=== PATIENT | female | born 1955 | race Caucasian/White ===

== ENCOUNTER 2022-11-01 07:42 | Outpatient (CLI) | payer MEDICARE, SELFPAY ==
--- NOTE | 2022-11-01 08:15 | MR_ITS ---
[address] [address] Phone:?[phone] Fax:?[phone] Referring Physician Information: Stephon Snell M.D. [address] [facility] [address] Phone:?[phone] Fax:?[phone] Patient:Ever Martinez D.O.B:?1955 Sex:?Female Phone:?[phone] [facility] MRN:?[id number] Exam Date:?11/01/2022 ? EXAM: MRI of the RIGHT KNEE, without contrast CLINICAL: Right knee pain. Evaluate for medial meniscal tear. COMPARISONS: MRI 09/21/2016. TECHNICAL: MR sequences of the right knee: sagittals: PD, PDFS coronals: PD, T2FS axials: PD, PDFS SEDATION: None. CONTRAST: None. FINDINGS: Ligaments: ACL: Intact ACL anteromedial and posterolateral bundles, without sprain or tear. PCL: Intact PCL, without acute or chronic injury. MCL: Intact MCL superficial and deep layers, without injury. LCL: Intact LCL, without injury. Posterolateral corner: Popliteus, biceps femoris, iliotibial band, and the popliteofibular ligament appear intact. Posteromedial corner: Semimembranosus, pes anserine tendons and posterior oblique ligament appear intact. Extensor mechanism: Patellar tendon: Intact, without tendinopathy. Quadriceps tendon: Intact, without tendinopathy. Retinacula: Medial and lateral retinacula are intact. Fat pads: Unremarkable infrapatellar Hoffa's, quadriceps and prefemoral fat pads. 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 This is increased compared to prior exam. Trochlea: No significant chondromalacia. Medial compartment: Medial meniscus: No evidence of discrete meniscal tear or meniscal displacement. Medial cartilage: No significant chondromalacia. Lateral compartment: Lateral meniscus: No evidence of discrete meniscal tear or meniscal displacement. Lateral cartilage: No significant chondromalacia. Knee joint: Effusion: Physiologic right knee effusion. Intra-articular bodies:?No convincing bodies identified. Popliteal cyst: None. Bones: No suspicious bone marrow signal alteration or fracture line. Anterior knee subcutaneous soft tissue edema is nonspecific. IMPRESSION: 1. 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 2. No evidence of meniscal tear, ligamentous injury or fracture. No significant joint effusion. JCZ Electronically signed on 11/01/2022 11:31:00 AM by Nilesh Glez D.O.
== END 2022-11-01 07:43 | disposition home or self-care (01) ==
PROVIDERS: PCP Family Medicine; Visit Provider Orthopaedic Surgery
DX: M25.561 Pain in right knee (principal)
CPT/HCPCS: 73721

== ENCOUNTER 2025-09-30 12:11 | Emergency (ER) | payer MEDICARE, SELFPAY ==
[2025-09-30] VITALS (23 sets, daily range): BP systolic 109–161; BP diastolic 36–78; PULSE 71–88; RESP 12–20; TEMP 36.2–36.7; O2SAT 92–100; BMI 31.3
[2025-09-30 12:43] LABS: Appearance Urine Clear (Clear)
--- NOTE | 2025-09-30 12:49 | ED.GENADULT ---
HPI - General Adult General Date Seen: 09/30/25 Chief complaint: Nausea/Vomiting Stated complaint: Vomiting Time Seen by Provider: 09/30/25 12:11 History of Present Illness HPI narrative: 69 yo F with a history of hypertension, hypothyroidism, GERD, elevated BMI, high cholesterol, type 2 diabetes, diabetic neuropathy, migraines, kidney stones, chronic kidney disease (in [facility] records it looks like her chronic creatinine range about 1.5-1.6 but on September 27, 3 days ago had gone up to 2.38). All other labs from 09/27 include sodium 137, potassium 4 1, chloride 4, bicarb 20, calcium 10.0, glucose 138. Urinalysis on 09/27 showed 1+ leukocyte esterase and trace blood otherwise negative. History from the patient is that several months ago she was noted to have chronic kidney disease and was referred to a farm mortgage agent. It sounds like that her farm mortgage agent at some workup and then was suspicious that she might have a renal artery stenosis. She was apparently referred for an angiogram a month or 2 ago and that angiogram ultimately did not confirm stenosis. 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 Since then she has been working with her farm mortgage agent as well as a vascular doctor and they been trying to adjust her medications. Recently her vascular doctor had her stop atenolol and start a new blood pressure medication instead (chlorthalidone? ). Also her vascular doctor had her increase her dose of atorvastatin from 25 mg up to 50 mg. She says that ever since she increased the door statin she has been feeling rotten. For the past couple of weeks she has had mild nausea intermittently. No vomiting. Along with that mild sensation that she might be about to get a headache and some sinus congestion for couple of weeks. She just was not feeling well last week without any clear other symptoms. No fever. No abdominal pain. No chest pain. Cough. No palpitations. She had to go back to the [facility] clinic for labs- on Tuesday, 3 days ago- see above. She says her cholesterol had dropped really low. However I do not see a cholesterol in the computer. I do see that her creatinine had climbed Since last Tuesday she has been feeling worse with a more significant headache, right flank pain, increased nausea and dry heaves. She has been unable to eat and almost unable drinking water over the weekend. She had perhaps 40 oz of water on Tuesday and only 8 oz yesterday on Tuesday. Today her flank pain is better but she still really nauseous and dry heaving. She is not really making any urine today, perhaps known yesterday either. She does not have a cough. No chest pain. No palpitations. She has sinus congestion but not really a headache. Vision is normal. She feels weak. Her whole body just feels heavy, even her eyebrows. Urination is been decreased in volume but no hematuria, dysuria. Related Data Home Medications ?Medication ?Instructions ?Recorded ?Confirmed clobetasol 0.05 % scalp solution ml topical 10/20/22 11/03/22 ketoconazole 2 % topical cream g topical 10/20/22 11/03/22 levothyroxine 100 mcg tablet 100 mcg PO 10/20/22 11/03/22 metformin 1,000 mg tablet 1,000 mg PO 10/20/22 11/03/22 omeprazole 20 mg capsule,delayed 20 mg PO 10/20/22 11/03/22 release valacyclovir 500 mg tablet 500 mg PO PRN 10/20/22 11/03/22 amlodipine 10 mg tablet 10 mg PO 11/03/22 11/03/22 rosuvastatin 20 mg tablet 20 mg PO QPM 09/30/25 09/30/25 Allergies Allergy/AdvReac Type Severity Reaction Status Date / Time latex Allergy rash, Verified 11/03/22 10:24 flushed, red phenytoin (From Dilantin) Allergy Verified 11/03/22 10:24 shellfish derived Allergy Verified 11/03/22 10:24 [facility] Medical History Brain tumor Diabetes High cholesterol Hypertension Hypothyroid Kidney stones Surgical History H/O foot surgery (07/17/13) Family History Other Diabetes Social History Smoking Status: Former smoker How often do you have a drink containing alcohol: monthly or less AUDIT-C Alcohol total score: 1 Non-prescribed substance use: denies use Exam Narrative: Exam Narrative: Constitutional: Appears well-developed and well-nourished. Alert. Looks tired but is overall conversant.. Non toxic. HENT: Head: Atraumatic. Nose: Nose normal. No purulent rhinorrhea. Mouth/Throat: Oral mucosa is clear and moist. no trismus. Pharynx normal. Tonsils symmetric. No tonsillar enlargement, erythema, or exudate. Eyes: Conjunctivae normal. EOM normal. Pupils equal, round, and reactive to light. No scleral icterus. Neck: Normal range of motion. Neck supple. No tracheal deviation present. No JVD Cardiovascular: Normal rate, regular rhythm. No gallop. No friction rub. Soft systolic murmur heard. Symmetric radial artery pulses Pulmonary/Chest: Effort normal. No stridor. No respiratory distress. No wheezes. No rales. No rhonchi . No tenderness. Abdominal: Soft. Bowel sounds normal. No distension. No mass. Right flank and right mid and upper quadrant tenderness. No rebound. No guarding. Musculoskeletal: RUE: Normal range of motion. No tenderness. No deformity LUE: Normal range of motion. No tenderness. No deformity RLE: Normal range of motion. No edema. No tenderness. No deformity LLE: Normal range of motion. No edema. No tenderness. No deformity Neurological: Alert and oriented to person, place, and time. Normal strength. CN II-VII intact. No sensory deficit. GCS eye subscore is 4. GCS verbal subscore is 5. GCS motor subscore is 6. Normal coordination Skin: Skin is warm and dry. No rash noted. No pallor. Normal capillary refill. Psychiatric: Normal mood. Normal affect. Const: Vital Signs, click to edit/add: Vital Signs - 24 hr 09/30/25 12:25 09/30/25 14:11 09/30/25 14:32 Temperature 97.2 F L Pulse Rate 74 76 Pulse Rate [Pulse Oximeter] 82 Respiratory Rate 16 18 20 Blood Pressure 142/60 H 136/57 L Blood Pressure [Ri ght Upper Arm] 161/78 H Pulse Oximetry 99 99 100 Oxygen Delivery Me thod Room Air 09/30/25 15:01 09/30/25 15:01 09/30/25 15:32 Temperature Pulse Rate 77 77 84 Pulse Rate [Pulse Oximeter] Respiratory Rate 17 17 20 Blood Pressure 133/55 L 133/55 L 142/62 H Blood Pressure [Ri ght Upper Arm] Pulse Oximetry 99 99 97 Oxygen Delivery Me thod Course Vital Signs Vital signs: Initial Vital Signs Temperature 97.2 F L 09/30/25 12:25 Temperature Source Temporal Artery Scan 09/30/25 12:25 Pulse Rate 82 09/30/25 12:25 Respiratory Rate 16 09/30/25 12:25 Blood Pressure 161/78 H 09/30/25 12:25 Blood Pressure Mean 105 09/30/25 12:25 Blood Pressure Position Sitting 09/30/25 12:25 Pulse Oximetry 99 09/30/25 12:25 Oxygen Delivery Method Room Air 09/30/25 12:25 Vital Signs Temperature 97.2 F L 09/30/25 12:25 Pulse Rate 82 09/30/25 12:25 Respiratory Rate 16 09/30/25 12:25 Blood Pressure 161/78 H 09/30/25 12:25 Pulse Oximetry 99 09/30/25 12:25 Oxygen Delivery Method Room Air 09/30/25 12:25 Temperature 97.2 F L 09/30/25 12:25 Pulse Rate 84 09/30/25 15:32 Respiratory Rate 20 09/30/25 15:32 Blood Pressure 142/62 H 09/30/25 15:32 Pulse Oximetry 97 09/30/25 15:32 Oxygen Delivery Method Room Air 09/30/25 12:25 Medications Administered Medications: Generic Name Dose Route Start Last Admin Trade Name Freq PRN Reason Stop Dose Admin Sodium Chloride 1,000 mls @ 125 mls/hr 09/30/25 15:52 09/30/25 16:20 0.9 % Sodium Chloride 1000 Ml IV 125 mls/hr .Q8H BRANDI Administration Discontinued Medications Generic Name Dose Route Start Last Admin Trade Name Freq PRN Reason Stop Dose Admin Acetaminophen 1,000 mg 09/30/25 15:00 09/30/25 15:16 Acetaminophen 500 Mg Tablet PO 09/30/25 15:01 1,000 mg ONCE ONE Administration Fentanyl 50 mcg 09/30/25 15:51 09/30/25 16:06 Fentanyl 100 Mcg/2 Ml Inj IVP 09/30/25 15:52 50 mcg ONCE ONE Administration Sodium Chloride 1,000 mls @ 1,000 mls/hr 09/30/25 13:30 09/30/25 14:46 0.9 % Sodium Chloride 1000 Ml IV 09/30/25 14:29 Infused .Q1H BRANDI Infusion Ceftriaxone Sodium 1 gm/ 100 mls @ 200 mls/hr 09/30/25 13:24 09/30/25 14:46 Sodium Chloride IVPB 09/30/25 13:25 Infused ONCE ONE Infusion Ceftriaxone Sodium 1 gm/ 100 mls @ 200 mls/hr 09/30/25 15:00 09/30/25 15:53 Sodium Chloride IVPB 09/30/25 15:01 Infused ONCE ONE Infusion Sodium Chloride 1,000 mls @ 1,000 mls/hr 09/30/25 15:00 09/30/25 15:53 0.9 % Sodium Chloride 1000 Ml IV 09/30/25 15:59 Infused .Q1H BRANDI Infusion Ondansetron HCl 4 mg 09/30/25 13:20 09/30/25 13:34 Ondansetron 2 Mg/Ml Inj IVP 09/30/25 13:21 4 mg ONCE ONE Administration Medical Decision Making [facility] Narrative Medical decision making narrative: Pleasant 69-year-old female presenting to the ER today with nausea, dry heaves, decreased urine output. 1. Renal. She does have some chronic renal insufficiency and it sounds like her baseline creatinine is 01.5. Last Tuesday 3 days ago was up to 2.4. Today, her labs show marked worsening with a BUN of 63 and creatinine of 10.0. This suggests an acute renal failure. Urinalysis shows scant pyuria which could potentially indicate UTI. Will treat with a g of Rocephin. White count is 12.5 but no other evidence for sepsis at this point. She is hemodynamically stable. Stone protocol CT scan does not show any evidence for obstructing kidney stones or hydronephrosis or a post renal cause of renal failure. Suspect this is probably pre renal related to her nausea and dehydration. We administered 2 L of crystalloid and repeat BMP shows mild improvement with a creatinine down to 9. BUN trending down to 59. In the setting of renal failure we did check potassium in his mildly elevated at 5.4. No associated EKG changes. Repeat potassium after fluids is trending down to 5.3. She does not have any hypoxia or shortness of breath. Nor does she have any signs of pulmonary edema affecting her lower lung kim on her abdominal CT scan. She does have a metabolic acidosis and lactic acidosis. Anion gap is widened at 20 which I think is due in part to lactic acidosis and possibly in part due to renal tubular acidosis. Discussed with the appliance installer from [facility]. At this point although she has markedly abnormal labs in metabolic acidosis there is not an indication for emergent transfer for immediate dialysis. He does agree the patient needs to be transferred to a center with dialysis capability and nephrology. He recommends transfer to hospitalist service at [facility]. Discussed with the hospitalist and [facility], Dr. Moreno. He accepted the patient. Unfortunately there may be up to an 8 hour delay before bed will be assigned Repeat BMP after 2 L of crystalloid shows mild improvement with creatinine trending down to 9.1. Potassium trending down 5.3. Lactic trending down to 2.9. Signed over to my partner Dr. Norman at 5:15 p.m.. He will continue to her mid observed until she be transferred to the hospitalist service at [facility] to be transferred by EMS. Lab Data Labs: Lab Results 09/30/25 09/30/25 09/30/25 Range/Units 12:29 13:32 14:59 WBC 12.56 H (4.50-11.00) K/uL RBC 3.71 L (4.00-5.20) m/uL Hgb 11.2 L (12.0-16.0) gm/dL Hct 34.3 (33.0-51.0) % MCV 93 (80-100) fL MCH 30 (26-34) pg MCHC 33 (32-36) gm/dL RDW Coeff of Ricardo 13.0 (11.5-15.5) % Plt Count 266 (140-440) K/uL Neut % (Auto) 68.7 (42.0-72.0) % Lymph % (Auto) 24.4 (20-44) % Isabela % (Auto) 5.7 (0.0-11.0) % Eos % (Auto) 0.8 (0.0-7.0) % Baso % (Auto) 0.2 (0.0-3.0) % Neut # (Auto) 8.60 H (1.7-7.0) K/uL Lymph # (Auto) 3.10 H (0.90-2.90) K/uL Isabela # (Auto) 0.70 (0.00-0.90) K/UL Eos # (Auto) 0.10 (0.00-0.50) K/uL Baso # (Auto) 0.00 (0.00-0.30) K/uL Abs Immat Gran (auto) 0.00 (0.00-0.30) K/uL Imm/Tot Granulo (auto) 0.2 % VBG pH 7.237 L* (7.32-7.43) VBG pCO2 28 L (40-50) mmHG VBG pO2 51.0 H (25-47) mmHG VBG HCO3 12 L (21-28) mmol/L Sodium 130 L (135-149) mmol/L Potassium 5.4 H (3.6-5.1) mmol/L Chloride 101 (96-114) mmol/L Carbon Dioxide 9 L* (20-32) mmol/L Anion Gap 20 H (7-15) mEq/L BUN 63 H (7-30) mg/dL Creatinine 10.0 H (0.5-1.5) mg/dL Estimated Creat Clear 5.09 Estimated GFR 4 ml/min Glucose 104 (60-115) mg/dL Lactate 3.2 H (0.5-1.9) mmol/L Calcium 9.4 (8.4-10.6) mg/dL Total Bilirubin 0.5 (0.1-1.5) mg/dL AST 24 (12-35) U/L ALT 25 (4-35) U/L Alkaline Phosphatase 93 (40-150) U/L Troponin I < 0.01 (0.01-0.04) ng/mL Total Protein 7.1 (6.0-8.3) g/dL Albumin 4.2 (3.3-5.0) g/dL Lipase 341 H (23-300) U/L Urine Color Yellow (Yellow) Urine Appearance Clear (Clear) Urine pH 5.0 (5.0-8.5) Ur Specific [place] 1.010 (1.000-1.030) Urine Protein 1+ A (Negative) Urine Glucose (UA) Negative (Negative) Urine Ketones Negative (Negative) Urine Blood Trace-lysed A (Negative) Urine Nitrite Negative (Negative) Urine Bilirubin Negative (Negative) Urine Urobilinogen 0.2 (0.2-1.0) Ur Leukocyte Esterase 2+ A (Negative) Urine RBC 0-2 (0-2) Urine WBC 5-10 A (0-5) Ur Squamous Epith Cells Few (None-Few) Urine Bacteria Moderate A (None) SARS-CoV-2 (PCR) Negative SARS-CoV-2 (Negative) Influenza Type A (PCR) Negative PCR FLU A (Negative) Influenza Type B (PCR) Negative PCR FLU B (Negative) RSV (PCR) Negative PCR RSV (Negative) 09/30/25 Range/Units 16:10 WBC (4.50-11.00) K/uL RBC (4.00-5.20) m/uL Hgb (12.0-16.0) gm/dL Hct (33.0-51.0) % MCV (80-100) fL MCH (26-34) pg MCHC (32-36) gm/dL RDW Coeff of Ricardo (11.5-15.5) % Plt Count (140-440) K/uL Neut % (Auto) (42.0-72.0) % Lymph % (Auto) (20-44) % Isabela % (Auto) (0.0-11.0) % Eos % (Auto) (0.0-7.0) % Baso % (Auto) (0.0-3.0) % Neut # (Auto) (1.7-7.0) K/uL Lymph # (Auto) (0.90-2.90) K/uL Isabela # (Auto) (0.00-0.90) K/UL Eos # (Auto) (0.00-0.50) K/uL Baso # (Auto) (0.00-0.30) K/uL Abs Immat Gran (auto) (0.00-0.30) K/uL Imm/Tot Granulo (auto) % VBG pH (7.32-7.43) VBG pCO2 (40-50) mmHG VBG pO2 (25-47) mmHG VBG HCO3 (21-28) mmol/L Sodium 131 L (135-149) mmol/L Potassium 5.3 H (3.6-5.1) mmol/L Chloride 105 (96-114) mmol/L Carbon Dioxide 8 L* (20-32) mmol/L Anion Gap 18 H (7-15) mEq/L BUN 59 H (7-30) mg/dL Creatinine 9.1 H (0.5-1.5) mg/dL Estimated Creat Clear 5.59 Estimated GFR 4 ml/min Glucose 89 (60-115) mg/dL Lactate 2.9 H (0.5-1.9) mmol/L Calcium 8.4 (8.4-10.6) mg/dL Total Bilirubin (0.1-1.5) mg/dL AST (12-35) U/L ALT (4-35) U/L Alkaline Phosphatase (40-150) U/L Troponin I (0.01-0.04) ng/mL Total Protein (6.0-8.3) g/dL Albumin (3.3-5.0) g/dL Lipase (23-300) U/L Urine Color (Yellow) Urine Appearance (Clear) Urine pH (5.0-8.5) Ur Specific [place] (1.000-1.030) Urine Protein (Negative) Urine Glucose (UA) (Negative) Urine Ketones (Negative) Urine Blood (Negative) Urine Nitrite (Negative) Urine Bilirubin (Negative) Urine Urobilinogen (0.2-1.0) Ur Leukocyte Esterase (Negative) Urine RBC (0-2) Urine WBC (0-5) Ur Squamous Epith Cells (None-Few) Urine Bacteria (None) SARS-CoV-2 (PCR) (Negative) Influenza Type A (PCR) (Negative) Influenza Type B (PCR) (Negative) RSV (PCR) (Negative) Imaging Data CT scan - abdomen: Attestation: I have reviewed the pertinent imaging results. Radiologist's impression: IMPRESSION: 1. Nonobstructing nephrolithiasis on the right. No ureteral stone or hydronephrosis. Nonspecific fat stranding surrounding the kidneys which can be idiopathic although the differential diagnosis would include nephritis/pyelonephritis. 2. Mild colonic diverticulosis. 3. Mild hepatic steatosis. 4. Incidental left renal lesion measuring 11 millimeters. This hyperdense lesion could represent a hyperdense cyst or solid lesion. Follow-up outpatient renal MRI could be considered for further characterization. ECG Data Attestation: I personally reviewed and interpreted this ECG as follows: Interpretation: Sinus rhythm with first-degree AV block MO interval 284 Normal QRS axis No ST segment elevation or depression. Nonspecific T-wave flattening in lead V1, lead 3, AVF, aVL. QT 400, QTC 422 Discharge Plan Discharge Clinical Impression: Acute renal failure, Metabolic acidosis, Acute hyperkalemia, Acute UTI Patient Disposition: [facility]on [facility] Prescriptions: No Action amlodipine 10 mg tablet 10 mg PO omeprazole 20 mg capsule,delayed release(DR/EC) 20 mg PO Patient Comments: TAKE 1 CAPSULE BY MOUTH EVERY DAY BEFORE A MEAL clobetasol 0.05 % solution topical metformin 1,000 mg tablet 1,000 mg PO levothyroxine 100 mcg tablet 100 mcg PO valacyclovir 500 mg tablet 500 mg PO PRN Patient Comments: TAKE 1 TABLET BY MOUTH EVERY DAY ketoconazole 2 % cream topical Patient Comments: APPLY TOPICALLY TO GROIN AT BEDTIME rosuvastatin 20 mg tablet 20 mg PO QPM Stand Alone Forms: [facility] Info Instructions Procedures ABG Interpretation ABG Results: 09/30/25 13:32 VBG pH 7.237 L* VBG pCO2 28 L VBG pO2 51.0 H VBG HCO3 12 L
--- NOTE | 2025-09-30 13:18 | CRLHL7_ITS ---
For Patients: As a result of the Century Cures Act, medical imaging exams and procedure reports are released immediately into your electronic medical record. You may view this report before your referring provider. If you have questions, please contact your health care provider. INDICATION: Nausea, dehydration and right flank pain TECHNIQUE: Axial images were obtained from the diaphragm to the pubic symphysis. Reformats were obtained in the coronal and sagittal plane. IV Contrast: None Oral Contrast: None COMPARISON: None. FINDINGS: Lower chest: Unremarkable. Liver: Normal in contour with diffusely decreased density of the liver with focal fat near the gallbladder fossa. Gallbladder and bile ducts: Gallbladder not seen suggesting prior cholecystectomy. Normal diameter common duct. Spleen: Unremarkable. Normal in size without mass. Pancreas: Unremarkable. No mass or inflammation. Adrenal glands: Unremarkable. No nodules. Kidneys: Mild nonspecific fat stranding surrounding both kidneys. Hyperdense lesion left kidney measuring 12 millimeters. Right kidney lower pole cyst measuring 11 millimeters. Prominent nephrolithiasis on the right with a stone at an upper pole calyx measuring 19 x 16 x 19 millimeters. No hydronephrosis or ureteral stone. Vasculature: Atherosclerosis without abdominal aortic aneurysm. GI tract: The stomach is unremarkable. Appendix unremarkable. Mild colonic diverticulosis. Pelvis: Unremarkable. Bones: Unremarkable for age. IMPRESSION: 1. Nonobstructing nephrolithiasis on the right. No ureteral stone or hydronephrosis. Nonspecific fat stranding surrounding the kidneys which can be idiopathic although the differential diagnosis would include nephritis/pyelonephritis. 2. Mild colonic diverticulosis. 3. Mild hepatic steatosis. 4. Incidental left renal lesion measuring 11 millimeters. This hyperdense lesion could represent a hyperdense cyst or solid lesion. Follow-up outpatient renal MRI could be considered for further characterization. Please note that all CT scans at this facility use dose modulation, iterative reconstruction, and/or weight-based dosing when appropriate to reduce radiation dose to as low as reasonably achievable. Dictated by Tc London MD @ 09/30/2025 2:20:41 PM (Electronically Signed)
[2025-09-30] MEDS: ONDANSETRON 2 MG/ML inj 4 MG IVP (13:34)
[2025-09-30 13:39] LABS: HCO3 VBG 12 mmol/L (21-28); Lactate* 3.2 mmol/L (0.5-1.9); PCO2 VBG 28 mmHG (40-50); PO2 VBG 51.0 mmHG (25-47)
[2025-09-30 13:41] LABS: Hematocrit* 34.3 % (33.0-51.0); Hemoglobin* 11.2 gm/dL (12.0-16.0); Immature Granulocytes Pct Auto 0.2 %; Mean Corpuscular HGB Conc 33 gm/dL (32-36); Mean Corpuscular Hemoglobin 30 pg (26-34); Mean Corpuscular Volume 93 fL (80-100); RDW Coefficient of Variation % 13.0 % (11.5-15.5); Red Blood Count* 3.71 m/uL (4.00-5.20); White Blood Count* 12.56 K/uL (4.50-11.00)
[2025-09-30 13:42] LABS: pH VBG 7.237 (7.32-7.43)
[2025-09-30] MEDS: cefTRIAXone 1 GM in 0.9 % SODIUM CHLORIDE Mini-bag 100 ML IVPB ×2 (13:49→15:17)
[2025-09-30 14:03] LABS: Albumin* 4.2 g/dL (3.3-5.0); Chloride* 101 mmol/L (96-114)
[2025-09-30 14:04] LABS: Potassium* 5.4 mmol/L (3.6-5.1); Sodium* 130 mmol/L (135-149)
[2025-09-30 14:06] LABS: Alanine Aminotransferase* 25 U/L (4-35); Aspartate Amino Transferase* 24 U/L (12-35); Blood Urea Nitrogen* 63 mg/dL (7-30); Creatinine* 10.0 mg/dL (0.5-1.5); Est. Creatinine Clearance* 5.09; Estimated Glomerular Filt Rate 4 ml/min
[2025-09-30 14:07] LABS: Alkaline Phosphatase* 93 U/L (40-150); Bilirubin Total* 0.5 mg/dL (0.1-1.5); Calcium* 9.4 mg/dL (8.4-10.6); Glucose* 104 mg/dL (60-115); Total Protein* 7.1 g/dL (6.0-8.3)
[2025-09-30 14:13] LABS: Anion Gap 20 mEq/L (7-15)
[2025-09-30 14:18] LABS: Carbon Dioxide* 9 mmol/L (20-32)
[2025-09-30 14:58] LABS: Immature Granulocytes Abs Auto 0.00 K/uL (0.00-0.30); Lymphocytes Absolute Auto 3.10 K/uL (0.90-2.90); Slide Review Reflex No
[2025-09-30] MEDS: ACETAMINOPHEN 500 MG TABLET 1000 MG PO (15:16)
[2025-09-30 16:09] LABS: PCR FLU A Negative PCR FLU A (Negative); PCR FLU B Negative PCR FLU B (Negative); PCR RSV Negative PCR RSV (Negative); SARS PCR* Negative SARS-CoV-2 (Negative)
[2025-09-30 16:18] LABS: Lactate* 2.9 mmol/L (0.5-1.9)
[2025-09-30 16:34] LABS: Chloride* 105 mmol/L (96-114); Potassium* 5.3 mmol/L (3.6-5.1); Sodium* 131 mmol/L (135-149)
[2025-09-30 16:37] LABS: Blood Urea Nitrogen* 59 mg/dL (7-30); Creatinine* 9.1 mg/dL (0.5-1.5); Est. Creatinine Clearance* 5.59; Estimated Glomerular Filt Rate 4 ml/min
[2025-09-30 16:38] LABS: Calcium* 8.4 mg/dL (8.4-10.6); Glucose* 89 mg/dL (60-115)
[2025-09-30 16:43] LABS: Anion Gap 18 mEq/L (7-15)
[2025-09-30 16:57] LABS: Carbon Dioxide* 8 mmol/L (20-32)
[2025-09-30] MEDS: MORPHINE 4 MG/ML INJ IVP (23:31)
== END 2025-09-30 23:47 | disposition short-term general hospital (02) ==
PROVIDERS: Family Medicine; Emergency Provider Emergency Medicine; PCP Family Medicine
DX: N17.9 Acute kidney failure, unspecified (principal); E87.21 Acute metabolic acidosis; N39.0 Urinary tract infection, site not specified; E87.5 Hyperkalemia
CPT/HCPCS: 36415; 74176; 80048; 80053; 81001; 82803; 83605; 83690; 84484; 85025; 87086; 87631; 93005; 96365; 96366; 96375; 99285; A9270; J0696; J2270; J2405; J3010; J7030

== ENCOUNTER 2025-09-30 23:19 | Outpatient (CLI) | payer MEDICARE, SELFPAY | END 2025-09-30 23:20 | disposition home or self-care (01) | LOC: AMB 10-03 17:31 | PROVIDERS: PCP Family Medicine; Visit Provider Family Medicine | DX: N17.9 Acute kidney failure, unspecified (principal); E87.20 Acidosis, unspecified; N39.0 Urinary tract infection, site not specified | CPT/HCPCS: A0425; A0427 ==